=== PATIENT | female | born 1990 | race Caucasian/White ===

== ENCOUNTER 2019-02-17 14:58 | Emergency (ER) | payer OTHER ==
[~2019-02-17] VITALS: Ht 165.1 cm; Wt 112.5 kg
[~2019-02-17 14:58] MED LIST: CONCERTA; FLAGYL500 MG PO; GLUCOPHAGE; MACROBID 100 M100 M1 PO; ZOLOFT
[2019-02-17 15:40] VITALS: BP 128/92
== END 2019-02-17 15:41 | disposition home or self-care (01) ==
LOC: M.ERS 14:58
DX: S21.119A Laceration without foreign body of unspecified front wall of thorax without penetration into thoracic cavity, initial encounter (principal); E11.9 Type 2 diabetes mellitus without complications; F17.210 Nicotine dependence, cigarettes, uncomplicated; Z90.49 Acquired absence of other specified parts of digestive tract; Z98.890 Other specified postprocedural states; Z88.0 Allergy status to penicillin; W22.8XXA Striking against or struck by other objects, initial encounter; Y93.89 Activity, other specified; Y92.89 Other specified places as the place of occurrence of the external cause; Y99.8 Other external cause status